=== PATIENT | female | born 1960 | race Caucasian/White ===

== ENCOUNTER 2017-10-10 13:23 | Emergency (ER) | payer OTHER, MEDICAID ==
[~2017-10-10] VITALS: Ht 124.5 cm; Wt 72.6 kg
[2017-10-10] MEDS ORDERED: BLOOD PRESSURE (13:37)
[2017-10-10] MEDS ORDERED: ANTI DEPRESSANT (13:38)
[2017-10-10] MEDS ORDERED: ANTACID168 MG PO (13:38)
[2017-10-10] MEDS ORDERED: TESSALON PERLE100 MG PO (14:26)
[2017-10-10] MEDS ORDERED: TRAMADOL 50 MG50 MG PO (14:26)
[2017-10-10 14:47] VITALS: BP 129/84
== END 2017-10-10 14:48 | disposition home or self-care (01) ==
LOC: M.ERS 13:23
DX: R07.81 Pleurodynia (principal); R05 Cough; Z88.6 Allergy status to analgesic agent

== ENCOUNTER 2017-10-13 16:03 | Emergency (ER) | payer OTHER, MEDICAID ==
[~2017-10-13] VITALS: Ht 149.9 cm; Wt 74.8 kg
[~2017-10-13 16:03] MED LIST: ANTACID168 MG PO; ANTI DEPRESSANT; BLOOD PRESSURE; TESSALON PERLE100 MG PO; TRAMADOL 50 MG50 MG PO
[2017-10-13 16:13] VITALS: BP 156/98
[2017-10-13] MEDS ORDERED: TRAMADOL 50 MG50 MG PO (16:33)
== END 2017-10-13 16:45 | disposition home or self-care (01) ==
LOC: M.ERS 16:03
DX: R07.81 Pleurodynia (principal); F17.200 Nicotine dependence, unspecified, uncomplicated; Z88.6 Allergy status to analgesic agent

== ENCOUNTER 2017-11-06 12:03 | Emergency (ER) | payer OTHER, MEDICAID ==
[~2017-11-06] VITALS: Ht 180.3 cm; Wt 77.1 kg
[2017-11-06] MEDS ORDERED: ROZEREM 8 MG TAB8 M1 PO (12:18)
[2017-11-06] MEDS ORDERED: PAXIL10 MG PO (12:18)
[2017-11-06] MEDS ORDERED: ARIPIPRAZOLE2 MG PO (12:19)
[2017-11-06] MEDS ORDERED: HYDROXYZINE HCL25 M1 PO (12:19)
[2017-11-06] MEDS ORDERED: OMEPRAZOLE20 MG PO (12:20)
[2017-11-06] MEDS ORDERED: LISINOPRIL10 MG PO (12:20)
[2017-11-06] MEDS ORDERED: ALL DAY ALLERGY10 M3 PO (12:21)
[2017-11-06] MEDS ORDERED: TESSALON PERLE100 MG PO (12:47)
[2017-11-06] MEDS ORDERED: PROAIR HFA8.5 GM INH (12:47)
[2017-11-06 13:08] VITALS: BP 167/94
[2017-11-06] MEDS ORDERED: TRAMADOL 50 MG50 MG PO (13:12)
== END 2017-11-06 13:08 | disposition home or self-care (01) ==
LOC: M.ERS 12:03
DX: R05 Cough (principal); R07.81 Pleurodynia; F17.210 Nicotine dependence, cigarettes, uncomplicated; Z88.6 Allergy status to analgesic agent

== ENCOUNTER 2017-11-22 18:34 | Emergency (ER) | payer OTHER, MEDICAID ==
[~2017-11-22] VITALS: Ht 149.9 cm; Wt 74.8 kg
[~2017-11-22 18:34] MED LIST changes: +ALL DAY ALLERGY10 M3 PO; +ARIPIPRAZOLE2 MG PO; +HYDROXYZINE HCL25 M1 PO; +LISINOPRIL10 MG PO; +OMEPRAZOLE20 MG PO; +PAXIL10 MG PO; +PROAIR HFA8.5 GM INH; +ROZEREM 8 MG TAB8 M1 PO
[2017-11-22] MEDS ORDERED: ROZEREM 8 MG TAB8 M1 PO (18:47)
[2017-11-22] MEDS ORDERED: PAROXETINE7.5 MG PO (18:49)
[2017-11-22] MEDS ORDERED: NORCO 5-325 TA1 EACH PO (20:12)
[2017-11-22 20:22] VITALS: BP 153/87
== END 2017-11-22 20:23 | disposition home or self-care (01) ==
LOC: M.ERS 18:34
DX: S22.43XA Multiple fractures of ribs, bilateral, initial encounter for closed fracture (principal); M81.0 Age-related osteoporosis without current pathological fracture; F17.210 Nicotine dependence, cigarettes, uncomplicated; Z88.6 Allergy status to analgesic agent; X58.XXXA Exposure to other specified factors, initial encounter; Y93.89 Activity, other specified; Y92.89 Other specified places as the place of occurrence of the external cause; Y99.8 Other external cause status

== ENCOUNTER 2018-01-05 17:48 | Emergency (ER) | payer OTHER, MEDICAID ==
[~2018-01-05] VITALS: Ht 149.9 cm; Wt 77.1 kg
[~2018-01-05 17:48] MED LIST changes: +NORCO 5-325 TA1 EACH PO; +PAROXETINE7.5 MG PO
[2018-01-05] MEDS ORDERED: NORCO 5-325 TA1 EACH PO (20:50)
[2018-01-05] MEDS ORDERED: NABUMETONE 750750 M1 PO (20:50)
[2018-01-05 21:02] VITALS: BP 176/85
== END 2018-01-05 21:03 | disposition home or self-care (01) ==
LOC: M.ERS 17:48
DX: M79.651 Pain in right thigh (principal); Z76.0 Encounter for issue of repeat prescription; I10 Essential (primary) hypertension; M81.0 Age-related osteoporosis without current pathological fracture; F17.210 Nicotine dependence, cigarettes, uncomplicated; Z88.6 Allergy status to analgesic agent

== ENCOUNTER 2018-01-26 14:15 | Emergency (ER) | payer OTHER, MEDICAID ==
[~2018-01-26] VITALS: Ht 149.9 cm; Wt 77.1 kg
[~2018-01-26 14:15] MED LIST changes: +NABUMETONE 750750 M1 PO
[2018-01-26] MEDS ORDERED: TRAMADOL 50 MG50 MG PO (15:38)
[2018-01-26 15:58] VITALS: BP 121/79
== END 2018-01-26 15:59 | disposition home or self-care (01) ==
LOC: M.ERS 14:15
DX: S20.212A Contusion of left front wall of thorax, initial encounter (principal); I10 Essential (primary) hypertension; M81.0 Age-related osteoporosis without current pathological fracture; F17.210 Nicotine dependence, cigarettes, uncomplicated; Z88.6 Allergy status to analgesic agent; X58.XXXA Exposure to other specified factors, initial encounter; Y93.89 Activity, other specified; Y92.89 Other specified places as the place of occurrence of the external cause; Y99.8 Other external cause status

== ENCOUNTER 2018-03-24 12:08 | Emergency (ER) | payer OTHER, MEDICAID ==
[~2018-03-24] VITALS: Ht 149.9 cm; Wt 74.8 kg
[2018-03-24] MEDS ORDERED: LIDOCAINE1 EACH TRANSDERM (12:30)
[2018-03-24] MEDS ORDERED: TESSALON PERLE100 MG PO ×2 (12:31→12:34)
[2018-03-24] MEDS ORDERED: ALLERGY10 M1 PO (12:31)
[2018-03-24] MEDS ORDERED: GYNE-LOTRIMIN-745 GM TOP (12:32)
[2018-03-24] MEDS ORDERED: NABUMETONE 750750 M1 PO (12:33)
[2018-03-24] MEDS ORDERED: FLEXERIL PO (12:33)
[2018-03-24] MEDS ORDERED: MOBIC7.5 MG PO (12:33)
[2018-03-24] MEDS ORDERED: RISEDRONATE SOD35 MG PO (12:34)
[2018-03-24] MEDS ORDERED: PEPCID20 MG PO (12:34)
[2018-03-24] MEDS ORDERED: VITAMIN D5000 UNIT PO (12:35)
[2018-03-24] MEDS ORDERED: CALCIUM 500 +1 EAC5 PO (12:35)
[2018-03-24] MEDS ORDERED: CALCIUM 600 +1 EAC1 PO (12:36)
[2018-03-24] MEDS ORDERED: COLACE100 MG PO (12:36)
[2018-03-24] MEDS ORDERED: BELSOMRA10 MG PO (12:37)
[2018-03-24] MEDS ORDERED: PAXIL10 MG PO (12:38)
[2018-03-24] MEDS ORDERED: RISPERDAL2 MG PO (12:38)
[2018-03-24] MEDS ORDERED: HYDROXYZINE HCL25 M1 PO (12:39)
[2018-03-24] MEDS ORDERED: NORCO 5-325 TA1 EACH PO (15:00)
[2018-03-24] MEDS ORDERED: NYSTATIN 100,0015 G1 TOP (15:07)
[2018-03-24 15:25] VITALS: BP 133/64
== END 2018-03-24 15:27 | disposition home or self-care (01) ==
LOC: M.ERS 12:08
DX: M79.651 Pain in right thigh (principal); B35.4 Tinea corporis; M81.0 Age-related osteoporosis without current pathological fracture; I10 Essential (primary) hypertension; F17.210 Nicotine dependence, cigarettes, uncomplicated; Z88.6 Allergy status to analgesic agent

== ENCOUNTER 2018-04-02 12:06 | Emergency (ER) | payer OTHER, MEDICAID ==
[~2018-04-02] VITALS: Ht 149.9 cm; Wt 75.8 kg
[~2018-04-02 12:06] MED LIST changes: +ALLERGY10 M1 PO; +BELSOMRA10 MG PO; +CALCIUM 500 +1 EAC5 PO; +CALCIUM 600 +1 EAC1 PO; +COLACE100 MG PO; +FLEXERIL PO; +GYNE-LOTRIMIN-745 GM TOP; +LIDOCAINE1 EACH TRANSDERM; +MOBIC7.5 MG PO; +NYSTATIN 100,0015 G1 TOP; +PEPCID20 MG PO; +RISEDRONATE SOD35 MG PO; +RISPERDAL2 MG PO; +VITAMIN D5000 UNIT PO
[2018-04-02] MEDS ORDERED: TRAMADOL 50 MG50 MG PO (13:01)
[2018-04-02 13:10] VITALS: BP 139/78
== END 2018-04-02 13:11 | disposition home or self-care (01) ==
LOC: M.ERS 12:06
DX: S93.491A Sprain of other ligament of right ankle, initial encounter (principal); W19.XXXA Unspecified fall, initial encounter; Y93.89 Activity, other specified; Y92.89 Other specified places as the place of occurrence of the external cause; Y99.8 Other external cause status; I10 Essential (primary) hypertension; Z88.6 Allergy status to analgesic agent

== ENCOUNTER 2018-04-05 11:28 | Emergency (ER) | payer OTHER, MEDICAID ==
[~2018-04-05] VITALS: Ht 149.9 cm; Wt 75.8 kg
[2018-04-05] MEDS ORDERED: VOLTAREN100 GM TOP (12:39)
[2018-04-05 12:48] VITALS: BP 130/62
== END 2018-04-05 12:51 | disposition home or self-care (01) ==
LOC: M.ERS 11:28
DX: M94.0 Chondrocostal junction syndrome [Tietze] (principal); I10 Essential (primary) hypertension; M81.0 Age-related osteoporosis without current pathological fracture; F17.210 Nicotine dependence, cigarettes, uncomplicated; Z88.6 Allergy status to analgesic agent

== ENCOUNTER 2018-06-03 12:59 | Observation (INO) | payer OTHER, MEDICAID ==
[~2018-06-03] VITALS: Ht 149.9 cm; Wt 75.7 kg
[~2018-06-03 12:59] MED LIST changes: +VOLTAREN100 GM TOP
[2018-06-03 13:11] VITALS: BP 153/94
[2018-06-03] MEDS ORDERED: LISINOPRIL10 MG PO (13:15)
[2018-06-03] MEDS ORDERED: NEURONTIN 300300 M1 PO (13:15)
[2018-06-03] MEDS ORDERED: ROZEREM 8 MG TAB8 M1 PO (13:16)
[2018-06-03] MEDS ORDERED: RISEDRONATE SOD35 M1 PO (13:18)
[2018-06-03] MEDS ORDERED: NASONEX17 GM NASAL (13:19)
[2018-06-03 13:58] LABS: URINE BILIRUBIN NEGATIVE (Negative); URINE BLOOD NEGATIVE (Negative); URINE CLARITY CLEAR; URINE COLOR YELLOW; URINE GLUCOSE-RANDOM 1+ (Negative); URINE KETONES NEGATIVE (Negative); URINE LEUKOCYTES-REFLEX NEGATIVE (Negative); URINE NITRITE-REFLEX NEGATIVE (Negative); URINE PROTEIN NEGATIVE (Negative); URINE SPECIFIC GRAVITY <= 1.005 (1.005-1.030); URINE UROBILINOGEN 0.2 E.U./dl (0.2-1.0)
[2018-06-03 14:00] LABS: ABSOLUTE BASOPHILS 0.1 thou/uL (0.0-0.2); ABSOLUTE EOSINOPHILS 0.2 thou/uL (0.0-0.7); ABSOLUTE LYMPHOCYTES 1.5 thou/uL (0.8-5.3); ABSOLUTE MONOCYTES 0.7 thou/uL (0.0-1.2); ABSOLUTE NEUTROPHILS 8.4 thou/uL (1.6-8.1); BASOPHILS 1.1 %; EOSINOPHILS 1.9 %; HEMATOCRIT 40.3 % (37.0-47.0); HEMOGLOBIN 13.5 gm/dL (12.0-15.0); LYMPHOCYTES 13.4 %; MCH 27.7 pg (26.0-34.0); MCHC 33.5 g/dL (28.0-37.0); MCV 82.5 fL (80.0-100.0); MONOCYTES 6.2 %; MPV 7.3 fl. (7.2-11.1); NUCLEATED RBCS 0 /100WBC; PLATELET COUNT* 202 thou/uL (150-400); POLYS 77.4 %; RBC 4.89 mil/uL (4.20-5.00); RDW-CV 13.4 % (10.5-14.5); WBC 10.9 thou/uL (4.0-11.0)
[2018-06-03 14:23] LABS: CALCIUM 8.8 mg/dL (8.5-10.1); CREATININE 0.7 mg/dL (0.6-1.3); POTASSIUM 3.8 mmol/L (3.5-5.1)
[2018-06-03 14:28] LABS: ALBUMIN 3.4 g/dL (3.4-5.0); TOTAL BILIRUBIN 0.4 mg/dL (<0.1-1.0); TOTAL PROTEIN 7.7 g/dL (6.4-8.2)
[2018-06-03 19:58] VITALS: BP 124/62
[2018-06-03 20:00] VITALS: BP 145/77
[2018-06-03] MEDS ORDERED: ABILIFY 2 MG2 M1 PO (20:16)
[2018-06-03] MEDS ORDERED: COLACE100 MG PO (20:18)
[2018-06-03] MEDS ORDERED: MAGNESIUM CITR100 MG PO (20:20)
[2018-06-03] MEDS ORDERED: TYLENOL EXTRA500 MG PO (20:21)
--- NOTE | 2018-06-03 20:53 | NUR ---
ADMITTED FROM ER AT 1945, NO ACUTE DISTRESS. STATES SHE IS CONSTIPATED BUT HAD SM BM TODAY. ACTIVE BOWEL SOUNDS, NO GRIMACING WHEN PALPATING ABD. TELEMETRY APPLIED SHOWING SR. SEE ADMISSION ASSESSMENT AND HX. WILL CONT TO MONITOR AND ASSIST NEEDED.
[2018-06-04] VITALS: BP 127/64
[2018-06-04 02:11] LABS: GLYCOHEMOGLOBIN (HGB A1C) 10.1 % (4.8-5.6)
[2018-06-04 04:00] VITALS: BP 132/76
[2018-06-04 05:20] LABS: HEMATOCRIT 38.2 % (37.0-47.0); HEMOGLOBIN 12.5 gm/dL (12.0-15.0); MCH 27.2 pg (26.0-34.0); MCHC 32.8 g/dL (28.0-37.0); MCV 82.8 fL (80.0-100.0); MPV 7.4 fl. (7.2-11.1); RBC 4.61 mil/uL (4.20-5.00); RDW-CV 13.7 % (10.5-14.5); WBC 11.2 thou/uL (4.0-11.0)
[2018-06-04 05:27] LABS: CALCIUM 8.6 mg/dL (8.5-10.1); CREATININE 0.6 mg/dL (0.6-1.3); MAGNESIUM 1.8 mg/dL (1.8-2.4); POTASSIUM 4.4 mmol/L (3.5-5.1)
--- NOTE | 2018-06-04 06:09 | NUR ---
SLEPT WELL TONIGHT. GAIT STEADY TO AND FROM BR. FLEETS ENEMA GIVEN EARLIER WITH COLORED WATER BUT NO PARTICALS NOTED. TELEMETRY CONT TO SHOW SR. HS GOALS OF REST AND SAFETY ACHIEVED. HOURLY ROUNDING OBSERVED.
--- NOTE | 2018-06-04 08:00 | NUR ---
ASSUMED PT CARE AT 0700, PT LYING IN BED, CALL LIGHT IN REACH, CONTACT LENS POLISHER TRACING SINUS RHYTHM, VSS, LS CTA, BS ACTIVE X4, PT HAD SOLID BM THIS EARLY AM. UP WITH ASSIST, A&O X4, WILL CONT POC.
[2018-06-04] MEDS ORDERED: METFORMIN HCL500 MG PO (11:01)
[2018-06-04] MEDS ORDERED: SENNA PLUS TAB1 EACH PO (11:01)
[2018-06-04] MEDS ORDERED: MIRALAX17 GM PO (11:01)
[2018-06-04 11:10] VITALS: BP 152/85
--- NOTE | 2018-06-04 11:35 | NUR ---
MET WITH PT TO DISCUSS HOME SITUATION/DC PLANNING. PT LIVES ALONE, HAS SUPPORTIVE DTR AND BF. USES CANE. PT DENIES ANY DC NEEDS. STATES SHE IS INDEPENDENT. PT STATED SHE WAS JUST DX WITH DMII, ASKING ABOUT INFO AND DIET. DM EDUCATION PACKET OBTAINED AND GIVEN TO PT, DISCUSSED WITH NURSE TO REVIEW. ALSO LEFT VMAIL FOR DIETITIAN. PT TO DC TODAY
[2018-06-04 14:47] VITALS: BP 152/85
--- NOTE | 2018-06-04 16:18 | NUR ---
PT DISCHARGED HOME VIA WHEELCHAIR WITH SIGNIFICANT OTHER AND NURSING STAFF. IV AND FIVE ROLL REFINER BATCH MIXER REMOVED, EDUCATED PT ON ALL DISCHARGE INSTRUCTIONS INCLUDING MEDICATIONS AND FOLLOW UP APPTS, STATES UNDERSTANDING.
== END 2018-06-04 16:05 | disposition home or self-care (01) ==
LOC: M.ERS 12:59 → M.2W 15:28 → M.TBA-ER 15:28 → M.2W 15:28
PROVIDERS: Nurse Practitioner Family; ADMIT Internal Medicine
DX: K59.00 Constipation, unspecified (principal); E86.9 Volume depletion, unspecified; E87.1 Hypo-osmolality and hyponatremia; E11.65 Type 2 diabetes mellitus with hyperglycemia; I10 Essential (primary) hypertension; F43.10 Post-traumatic stress disorder, unspecified; K64.9 Unspecified hemorrhoids; F17.210 Nicotine dependence, cigarettes, uncomplicated; Z79.899 Other long term (current) drug therapy

== ENCOUNTER 2018-06-21 07:19 | Emergency (ER) | payer OTHER, MEDICAID ==
[~2018-06-21] VITALS: Ht 162.6 cm; Wt 78.5 kg
[~2018-06-21 07:19] MED LIST changes: +ABILIFY 2 MG2 M1 PO; +MAGNESIUM CITR100 MG PO; +METFORMIN HCL500 MG PO; +MIRALAX17 GM PO; +NASONEX17 GM NASAL; +NEURONTIN 300300 M1 PO; +RISEDRONATE SOD35 M1 PO; +SENNA PLUS TAB1 EACH PO; +TYLENOL EXTRA500 MG PO
[2018-06-21] MEDS ORDERED: HYDROCODON-ACE1 EAC8 PO (12:26)
[2018-06-21 12:59] VITALS: BP 149/86
== END 2018-06-21 12:59 | disposition home or self-care (01) ==
LOC: M.ERS 07:19
DX: S82.841A Displaced bimalleolar fracture of right lower leg, initial encounter for closed fracture (principal); I10 Essential (primary) hypertension; F17.210 Nicotine dependence, cigarettes, uncomplicated; Z88.6 Allergy status to analgesic agent; W00.0XXA Fall on same level due to ice and snow, initial encounter; Y93.89 Activity, other specified; Y92.89 Other specified places as the place of occurrence of the external cause; Y99.8 Other external cause status

== ENCOUNTER 2019-04-03 22:09 | Inpatient (IN) | payer OTHER, MEDICAID ==
[~2019-04-03] VITALS: Ht 149.9 cm; Wt 65.8 kg
[~2019-04-03 22:09] MED LIST changes: +CYCLOBENZAPRINE5 MG PO; +ENOXAPARIN40 MG/0.1 SUBQ; +HYDROCODON-ACE1 EAC7 PO; +HYDROCODON-ACE1 EAC8 PO
[2019-04-03 22:17] VITALS: BP 149/90
[2019-04-03 23:00] LABS: ABSOLUTE BASOPHILS 0.1 thou/uL (0.0-0.2); ABSOLUTE EOSINOPHILS 0.2 thou/uL (0.0-0.7); ABSOLUTE LYMPHOCYTES 2.2 thou/uL (0.8-5.3); ABSOLUTE MONOCYTES 0.9 thou/uL (0.0-1.2); ABSOLUTE NEUTROPHILS 6.5 thou/uL (1.6-8.1); BASOPHILS 0.6 %; EOSINOPHILS 2.1 %; HEMATOCRIT 40.5 % (37.0-47.0); HEMOGLOBIN 13.7 gm/dL (12.0-15.0); LYMPHOCYTES 21.9 %; MCH 28.2 pg (26.0-34.0); MCHC 33.9 g/dL (28.0-37.0); MCV 83.4 fL (80.0-100.0); MONOCYTES 9.1 %; MPV 6.6 fl. (7.2-11.1); NUCLEATED RBCS 0 /100WBC; PLATELET COUNT* 233 thou/uL (150-400); POLYS 66.3 %; RBC 4.86 mil/uL (4.20-5.00); RDW-CV 12.9 % (10.5-14.5); WBC 9.9 thou/uL (4.0-11.0)
[2019-04-03 23:07] LABS: CALCIUM 8.8 mg/dL (8.5-10.1); CREATININE 0.8 mg/dL (0.6-1.3); POTASSIUM 4.1 mmol/L (3.5-5.1)
[2019-04-03 23:11] LABS: ALBUMIN 4.1 g/dL (3.4-5.0); TOTAL BILIRUBIN 0.3 mg/dL (<0.1-1.0); TOTAL PROTEIN 7.7 g/dL (6.4-8.2)
[2019-04-04 00:29] LABS: URINE BILIRUBIN NEGATIVE (Negative); URINE BLOOD NEGATIVE (Negative); URINE CLARITY CLEAR; URINE COLOR YELLOW; URINE GLUCOSE-RANDOM NEGATIVE (Negative); URINE KETONES NEGATIVE (Negative); URINE LEUKOCYTES-REFLEX NEGATIVE (Negative); URINE NITRITE-REFLEX NEGATIVE (Negative); URINE PROTEIN NEGATIVE (Negative); URINE UROBILINOGEN 0.2 E.U./dl (0.2-1.0)
[2019-04-04 00:38] LABS: AMP/METHAMP Negative (Negative); BARBITURATES Negative (Negative); BENZODIAZEPINES Negative (Negative); COCAINE Negative (Negative); METHADONE Negative (Negative); OPIATES Negative (Negative); PCP Negative (Negative); THC Negative (Negative)
[2019-04-04 01:35] VITALS: BP 149/90
[2019-04-04 01:45] VITALS: BP 112/64
[2019-04-04 08:45] VITALS: BP 121/70
[2019-04-04 12:40] LABS: ABSOLUTE BASOPHILS 0.1 thou/uL (0.0-0.2); ABSOLUTE EOSINOPHILS 0.2 thou/uL (0.0-0.7); ABSOLUTE LYMPHOCYTES 1.6 thou/uL (0.8-5.3); ABSOLUTE MONOCYTES 0.6 thou/uL (0.0-1.2); ABSOLUTE NEUTROPHILS 4.7 thou/uL (1.6-8.1); BASOPHILS 1.2 %; EOSINOPHILS 2.1 %; HEMATOCRIT 39.9 % (37.0-47.0); HEMOGLOBIN 13.5 gm/dL (12.0-15.0); LYMPHOCYTES 22.7 %; MCH 28.1 pg (26.0-34.0); MCHC 33.8 g/dL (28.0-37.0); MCV 83.1 fL (80.0-100.0); MONOCYTES 8.1 %; MPV 6.7 fl. (7.2-11.1); NUCLEATED RBCS 0 /100WBC; PLATELET COUNT* 231 thou/uL (150-400); POLYS 65.9 %; RDW-CV 13.4 % (10.5-14.5); WBC 7.2 thou/uL (4.0-11.0)
[2019-04-04 12:55] LABS: ALBUMIN 3.8 g/dL (3.4-5.0); CALCIUM 8.1 mg/dL (8.5-10.1); CREATININE 0.7 mg/dL (0.6-1.3); POTASSIUM 4.4 mmol/L (3.5-5.1); TOTAL BILIRUBIN 0.3 mg/dL (<0.1-1.0); TOTAL PROTEIN 7.2 g/dL (6.4-8.2)
[2019-04-04 16:00] VITALS: BP 127/68
[2019-04-04 21:00] VITALS: BP 132/74
[2019-04-05 05:00] LABS: ABSOLUTE EOSINOPHILS 0.2 thou/uL (0.0-0.7); ABSOLUTE LYMPHOCYTES 1.6 thou/uL (0.8-5.3); ABSOLUTE MONOCYTES 0.7 thou/uL (0.0-1.2); ABSOLUTE NEUTROPHILS 5.1 thou/uL (1.6-8.1); BASOPHILS 0.6 %; EOSINOPHILS 2.6 %; HEMATOCRIT 39.2 % (37.0-47.0); LYMPHOCYTES 20.6 %; MCH 27.8 pg (26.0-34.0); MCHC 33.2 g/dL (28.0-37.0); MCV 83.6 fL (80.0-100.0); MONOCYTES 9.4 %; NUCLEATED RBCS 0 /100WBC; PLATELET COUNT* 224 thou/uL (150-400); POLYS 66.8 %; RBC 4.68 mil/uL (4.20-5.00); RDW-CV 13.5 % (10.5-14.5); WBC 7.6 thou/uL (4.0-11.0)
[2019-04-05 05:14] LABS: ALBUMIN 3.7 g/dL (3.4-5.0); CALCIUM 7.8 mg/dL (8.5-10.1); CREATININE 0.8 mg/dL (0.6-1.3); POTASSIUM 4.1 mmol/L (3.5-5.1); TOTAL BILIRUBIN 0.5 mg/dL (<0.1-1.0)
[2019-04-05 07:52] VITALS: BP 138/65
[2019-04-05 11:52] VITALS: BP 138/65
--- NOTE | 2019-04-05 14:35 | EKG ---
[place] [address] ELECTROCARDIOGRAM REPORT Name: NICOLE EDMOND Room: [address] ADM IN M.R.#: [id number] Admission: 04/04/19 Attend Phys: John Zambrano MD Discharge: Date of : 56 Report #: [id number] THIS REPORT FOR: //name// [facility] Test Date: 2019-04-05 Test Time: 12:52:16 Pat Name: NICOLE EDMOND Department: Room: [address] Gender: F Actuarial Consultant: RT : 1960 Requested By: Shankar Mena Order Number: [id number] John MD: Nas Goodman Measurements Intervals [place] Rate: 79 P: 65 MA: 141 QRS: 11 QRSD: 94 T: 76 QT: 426 QTc: 489 Interpretive Statements Sinus rhythm Probable LVH with secondary repol abnrm Borderline prolonged QT interval Compared to ECG 06/30/2018 10:32:02 No significant changes Electronically Signed On 04-05-2019 14:35:23 COMMITTEE MEMBER by Nas Goodman [email or web address] <ELECTRONICALLY SIGNED> By: Nas Goodman MD, [facility] 04/05/19 1435 1252 1252 Nas Goodman MD, [facility] /EPI
[2019-04-05 20:15] VITALS: BP 150/78
[2019-04-06 00:49] VITALS: BP 129/76
[2019-04-06 04:04] LABS: ABSOLUTE BASOPHILS 0.1 thou/uL (0.0-0.2); ABSOLUTE EOSINOPHILS 0.1 thou/uL (0.0-0.7); ABSOLUTE LYMPHOCYTES 1.5 thou/uL (0.8-5.3); ABSOLUTE MONOCYTES 0.9 thou/uL (0.0-1.2); ABSOLUTE NEUTROPHILS 9.9 thou/uL (1.6-8.1); BASOPHILS 0.7 %; EOSINOPHILS 0.6 %; HEMATOCRIT 39.5 % (37.0-47.0); HEMOGLOBIN 13.5 gm/dL (12.0-15.0); LYMPHOCYTES 12.2 %; MCH 28.4 pg (26.0-34.0); MCHC 34.2 g/dL (28.0-37.0); MCV 82.8 fL (80.0-100.0); MONOCYTES 6.9 %; MPV 6.5 fl. (7.2-11.1); NUCLEATED RBCS 0 /100WBC; PLATELET COUNT* 208 thou/uL (150-400); POLYS 79.6 %; RBC 4.78 mil/uL (4.20-5.00); RDW-CV 12.9 % (10.5-14.5); WBC 12.4 thou/uL (4.0-11.0)
[2019-04-06 04:28] VITALS: BP 135/63
[2019-04-06 04:36] LABS: ALBUMIN 3.6 g/dL (3.4-5.0); CALCIUM 7.7 mg/dL (8.5-10.1); CREATININE 0.7 mg/dL (0.6-1.3); POTASSIUM 4.2 mmol/L (3.5-5.1); TOTAL BILIRUBIN 0.5 mg/dL (<0.1-1.0); TOTAL PROTEIN 8.2 g/dL (6.4-8.2)
[2019-04-06 08:10] VITALS: BP 136/81
[2019-04-06 12:29] VITALS: BP 136/81
[2019-04-06] MEDS ORDERED: HYDROCODON-ACE1 EAC7 PO (13:12)
[2019-04-06] MEDS ORDERED: SENNA PLUS TAB1 EACH PO (16:10)
--- NOTE | 2019-04-08 10:07 | PATH ---
[address] [address] PATHOLOGY RPT PROCEDURE Name: NICOLE EDMOND Room: [address] IN .R.#: [id number] Admission: 04/04/19 Date of : 56 Discharge: 04/06/19 Report #: [id number] Path Case #: [id number] LCA Accession Number: [id number] . 01 Material submitted: . gallbladder - GALLBLADDER . 01 Clinical history: . Cholecystitis . 02 Diagnosis: Gallbladder: - Chronic follicular and acute cholecystitis and cholelithiasis with benign sentinel lymph node showing follicular hyperplasia. . (AMRIT:mml; 04/07/2019) QL 04/07/2019 1243 Local . 02 Electronically signed: . Jose M Whitmore MD, Pathologist NPI- [id number] . 01 Gross description: . Received in formalin labeled "Nicole Edmond, gallbladder," is an intact, turgid and edematous-appearing gallbladder measuring 7.5 x 3.6 x 2.4 cm in greatest dimensions. The serosal surface is smooth and light green-yellow to focally hemorrhagic in appearance, displaying scant attached adipose tissue. A sheikh-brown possible lymph node is noted near the infundibulum, measuring 1.0 x 0.8 x 0.3 cm. Opening the specimen reveals a light green mucosa diffusely stippled with faint yellow highlights and measuring 0.1 cm in thickness, with an average gallbladder wall thickness of 0.2 cm. No polyps or nodules are identified grossly. Intact and fragmented calculi are present within the specimen that are granular and dark sheikh-brown in appearance, ranging from 0.3 to 1.2 cm in maximum dimension. Residential Service Technician sections of the infundibulum, body and fundus are submitted in cassette A1. The possible lymph node is serially sectioned and submitted entirely in cassette A2. (DAC; 04/06/2019) XDC/XDC 04/06/2019 0743 Local . 02 Pathologist provided ICD-10: K80.12, R59.9 . 02 CPT . 356014 Specimen Comment: A courtesy copy of this report has been sent to [phone], [phone] Specimen Comment: [address], [place] [address] PATHOLOGY RPT PROCEDURE Name: NICOLE EDMOND Room: [address] IN M.R.#: [id number] Admission: 04/04/19 Date of : 56 Discharge: 04/06/19 Report #: [id number] Path Case #: [id number] Specimen Comment: Report sent to , and Specimen Comment: A duplicate report has been generated due to demographic updates. Performed at: 01 [facility] Juan Pablo Lee [address], [place], [place] [address] MD Ernesto Cano MD Phone: [phone] Performed at: 02 [facility] [address] [place], [place] [id number] MD Jose M Whitmore MD Phone: [phone]
--- NOTE | 2019-04-12 14:39 | OP ---
[address] [address] OPERATIVE REPORT Name: NICOLE EDMOND Room: [address] IN M.R.#: [id number] Admission: 04/04/19 Attend Phys: John Zambrano MD Discharge: 04/06/19 Date of : 56 Report #: [id number] THIS REPORT FOR: //name// CC: John Javed Christopher DICTATED BY: Harvey Meier DO DATE OF SERVICE: 04/05/2019 PREOPERATIVE DIAGNOSIS: Symptomatic cholelithiasis. POSTOPERATIVE DIAGNOSES: Acute cholecystitis with cholelithiasis. PRIMARY SURGEON: Blaine Wilson MD ASSISTANTS: Harvey Meier DO, PGY3 and Preet Harden MS3. OPERATION PERFORMED: Laparoscopic cholecystectomy. ANESTHESIA: General and local. ESTIMATED BLOOD LOSS: 10. SPECIMEN: Gallbladder. COMPLICATIONS: None. INDICATIONS FOR PROCEDURE: The patient is a pleasant 58-year-old female who presented to the ED with a chief complaint of right upper quadrant abdominal pain starting the night prior after a meal. The patient reports known gallstones and a history of being offered a cholecystectomy, but declined at that time and wanted to monitor it. She reports associated radiation of her pain to her right shoulder and back as well as nausea and vomiting. Pain had persisted for 24 hours and was not improving, so she decided to seek further treatment. The patient was noted to have distended gallbladder with cholelithiasis on a CT abdomen and pelvis, recommended laparoscopic cholecystectomy. Full discussion of procedure, alternatives, risks and possible complications discussed include but not limited to bleeding, infection, postoperative pain, scarring, hernia, conversion to open procedure, injury to other underlying abdominal organs mainly bowel, bile ducts, liver and stomach, if bile duct injury were to occur, need for further surgery, possible transfer to tertiary care facility, bile leak, biloma and anesthesia risks. The patient voiced understanding of the risks and agreed to proceed with surgery. OPERATIVE TECHNIQUE: The patient was [place] [address] OPERATIVE REPORT Name: NICOLE EDMOND Room: [address] IN ..#: [id number] Admission: 04/04/19 Attend Phys: John Zambrano MD Discharge: 04/06/19 Date of : 56 Report #: [id number] preoperative holding. Fully informed written consent was obtained. Preoperative antibiotics, 2 grams Ancef were given. The patient was subsequently transferred to the operating room suite and placed on the operating table in supine position. At this time, Anesthesia induced general anesthesia via endotracheal intubation and this was successful. SCDs were placed to bilateral lower extremity calves. Arm were placed out on arm boards. Grounding pad was placed to right lateral thigh. All extremities and joints were padded and protected. A footboard was placed to the patient's feet. The patient was prepped and draped using standard sterile fashion. Time-out was performed prior to onset of procedure. We began by optiviewing in with a 5 mm trocar to the right upper quadrant. Insufflation was achieved first using low flow then high flow. A 5 mm 30-degree laparoscopic camera was placed in the abdomen, noting no injury to underlying structures upon entry into the abdomen. Next, additional 5 mm trocar was placed superior to the umbilicus and an additional 8 mm trocar was placed in the right upper quadrant as if was a 5 mm trocar in the epigastric region. The patient was placed in reverse Trendelenburg with left side down. Gallbladder was grasped and elevated. Omental and peritoneal attachments were taken down. The gallbladder was noted to be distended, edematous, hyperemic with findings consistent with acute cholecystitis. The gallbladder was grasped, the Christos's pouch with the blunt grasper. Dissection was carried out on the lateral aspect of the gallbladder, taking down the peritoneum. Once this was achieved, cystic duct was noted and dissected out circumferentially. The cystic duct was very short and the cystic artery was noted to be just posterior to this. Critical view of safety was obtained. A 5 mm clip sales engineer was used to clip the cystic duct three times proximally and once distally and up near the gallbladder as well as the cystic artery was clipped twice proximally and once distally. Artery and duct were then transected using laparoscopic scissors. Gallbladder was placed into a 5 mm EndoCatch bag through the 8 mm trocar site. The right upper quadrant was copiously suctioned and irrigated using a laparoscopic suction. Hemostasis was easily achieved using electrocautery of the gallbladder fossa and liver bed. The patient was placed back to supine. The gallbladder was then removed through the 8 mm incision site in the right upper quadrant. Abdomen was then desufflated under direct visualization. Additional trocars were removed. The patient placed back supine. An interrupted 0 Vicryl suture was used to close the fascia of the 8 mm port site. Skin was closed using interrupted subcuticular 4-0 Monocryl at each location. The patient tolerated the procedure well. Abdomen was cleansed using wet and dry lap. Sterile dressing applied, Dermabond. The patient was extubated in the OR and transferred to the PACU in stable condition after a brief recovery from anesthesia and plan to return to the floor for ongoing care. <ELECTRONICALLY SIGNED> By: Blaine Wilson MD 04/12/19 0452 1502 1919MD marilou Mantilla
== END 2019-04-06 18:54 | disposition home or self-care (01) | DRG 418 ==
LOC: M.ERS 22:09 → M.3W 04-04 01:00 → M.TBA-ER 04-04 01:00 → M.3W 04-04 01:34
PROVIDERS: Internal Medicine; Nurse Practitioner Family; Personal Emergency Response Attendant; Surgery; ADMIT Internal Medicine
PROC: 0FT44ZZ Resection of Gallbladder, Percutaneous Endoscopic Approach (ICD-10-PCS; principal; 2019-04-05)
DX: K80.00 Calculus of gallbladder with acute cholecystitis without obstruction (principal); E87.1 Hypo-osmolality and hyponatremia; M81.0 Age-related osteoporosis without current pathological fracture; I10 Essential (primary) hypertension; F43.10 Post-traumatic stress disorder, unspecified; K75.81 Nonalcoholic steatohepatitis (NASH); D25.9 Leiomyoma of uterus, unspecified; E11.9 Type 2 diabetes mellitus without complications; F17.210 Nicotine dependence, cigarettes, uncomplicated; F10.21 Alcohol dependence, in remission; H57.89 Other specified disorders of eye and adnexa; F41.9 Anxiety disorder, unspecified; F32.9 Major depressive disorder, single episode, unspecified; K59.00 Constipation, unspecified; M19.90 Unspecified osteoarthritis, unspecified site; Z82.49 Family history of ischemic heart disease and other diseases of the circulatory system; Z79.84 Long term (current) use of oral hypoglycemic drugs; Z79.891 Long term (current) use of opiate analgesic; Z79.899 Other long term (current) drug therapy; Z88.8 Allergy status to other drugs, medicaments and biological substances; Z83.3 Family history of diabetes mellitus; Z80.9 Family history of malignant neoplasm, unspecified

== ENCOUNTER 2020-02-13 23:24 | Emergency (ER) | payer OTHER, MEDICAID ==
[~2020-02-13] VITALS: Ht 149.9 cm; Wt 72.1 kg
[2020-02-13] MEDS ORDERED: LIPITOR 20 MG T20 M1 PO (23:46)
[2020-02-13] MEDS ORDERED: PROAIR HFA8.5 GM INH (23:46)
[2020-02-13] MEDS ORDERED: BUPROPION XL300 MG PO (23:46)
[2020-02-13] MEDS ORDERED: MIRALAX119 GM PO (23:47)
[2020-02-13] MEDS ORDERED: CENTRUM SILVER1 EAC6 PO (23:47)
[2020-02-13] MEDS ORDERED: MELOXICAM15 MG PO (23:48)
[2020-02-13] MEDS ORDERED: VOLTAREN GEL 1100 G1 TOP (23:48)
[2020-02-13] MEDS ORDERED: FLONASE 0.05%50 MCG NASAL (23:48)
[2020-02-13] MEDS ORDERED: TOPROL XL25 MG PO (23:49)
[2020-02-13] MEDS ORDERED: TRAMADOL 50 MG50 MG PO (23:49)
[2020-02-13] MEDS ORDERED: ROZEREM 8 MG TAB8 M1 PO (23:49)
[2020-02-13 23:57] LABS: ABSOLUTE BASOPHILS 0.1 thou/uL (0.0-0.2); ABSOLUTE EOSINOPHILS 0.2 thou/uL (0.0-0.7); ABSOLUTE NEUTROPHILS 7.5 thou/uL (1.6-8.1); WBC 10.9 thou/uL (4.0-11.0)
[2020-02-13 23:59] LABS: ABSOLUTE LYMPHOCYTES 2.2 thou/uL (0.8-5.3); ABSOLUTE MONOCYTES 0.9 thou/uL (0.0-1.2); BASOPHILS 0.6 %; HEMOGLOBIN 13.1 gm/dL (12.0-15.0); LYMPHOCYTES 20.4 %; MCHC 32.8 g/dL (28.0-37.0); MCV 79.3 fL (80.0-100.0); MONOCYTES 8.5 %; MPV 6.8 fl. (7.2-11.1); NUCLEATED RBCS 0 /100WBC; PLATELET COUNT* 298 thou/uL (150-400); POLYS 68.5 %; RBC 5.04 mil/uL (4.20-5.00); RDW-CV 17.3 % (10.5-14.5)
[2020-02-14 00:08] LABS: CREATININE 0.9 mg/dL (0.6-1.3); POTASSIUM 3.9 mmol/L (3.5-5.1)
[2020-02-14 00:12] LABS: ALBUMIN 3.9 g/dL (3.4-5.0); TOTAL BILIRUBIN 0.6 mg/dL (<0.1-1.0); TOTAL PROTEIN 8.9 g/dL (6.4-8.2)
[2020-02-14 00:56] LABS: URINE BILIRUBIN NEGATIVE (Negative); URINE BLOOD NEGATIVE (Negative); URINE CLARITY CLEAR; URINE COLOR YELLOW; URINE GLUCOSE-RANDOM NEGATIVE (Negative); URINE KETONES NEGATIVE (Negative); URINE LEUKOCYTES-REFLEX NEGATIVE (Negative); URINE NITRITE-REFLEX NEGATIVE (Negative); URINE PROTEIN NEGATIVE (Negative); URINE SPECIFIC GRAVITY <= 1.005 (1.005-1.030); URINE UROBILINOGEN 0.2 E.U./dl (0.2-1.0)
[2020-02-14] MEDS ORDERED: NORCO 5-325 TA1 EAC2 PO (02:18)
[2020-02-14] MEDS ORDERED: ZOFRAN ODT4 MG SUBLING (02:18)
[2020-02-14 02:46] VITALS: BP 125/67
--- NOTE | 2020-02-14 17:54 | EKG ---
[place] [address] ELECTROCARDIOGRAM REPORT Name: NICOLE EDMOND Room: [facility]#: [id number] Admission: 02/13/20 Attend Phys: Discharge: 02/14/20 Date of : 56 Date of Service: 02/13/20 2338 Report #: [id number] THIS REPORT FOR: //name// [facility] ED Test Date: 2020-02-13 Test Time: 23:38:53 Pat Name: NICOLE EDMOND Department: Room: Gender: F Dumper Operator: : 1960 Requested By: Melchor Puente Order Number: [id number] MD: Obey Caputo Measurements Intervals [place] Rate: 92 P: 75 SD: 147 QRS: 9 QRSD: 101 T: 132 QT: 403 QTc: 499 Interpretive Statements Sinus rhythm LVH with secondary repolarization abnormality Borderline prolonged QT interval Compared to ECG 04/05/2019 12:52:16 No significant changes Electronically Signed On 02-14-2020 17:54:53 CDT by Obey Caputo [email or web address] <ELECTRONICALLY SIGNED> By: Obey Caputo MD, FACC 02/14/20 1754 2338 2338 Obey Caputo MD, FACC /EPI
[2020-02-15] MEDS ORDERED: DOXYCYCLINE 10100 M2 PO (15:26)
== END 2020-02-14 02:46 | disposition home or self-care (01) ==
LOC: M.ERS 23:24
PROVIDERS: Family Medicine
DX: R10.84 Generalized abdominal pain (principal); R10.10 Upper abdominal pain, unspecified; R10.30 Lower abdominal pain, unspecified; I10 Essential (primary) hypertension; E11.9 Type 2 diabetes mellitus without complications; F17.210 Nicotine dependence, cigarettes, uncomplicated; Z90.49 Acquired absence of other specified parts of digestive tract; Z88.6 Allergy status to analgesic agent

== ENCOUNTER 2020-02-15 11:09 | Emergency (ER) | payer OTHER, MEDICAID ==
[~2020-02-15] VITALS: Ht 149.9 cm; Wt 72.1 kg
[~2020-02-15 11:09] MED LIST changes: +BUPROPION XL300 MG PO; +CENTRUM SILVER1 EAC6 PO; +FLONASE 0.05%50 MCG NASAL; +LIPITOR 20 MG T20 M1 PO; +MELOXICAM15 MG PO; +MIRALAX119 GM PO; +NORCO 5-325 TA1 EAC2 PO; +TOPROL XL25 MG PO; +VOLTAREN GEL 1100 G1 TOP; +ZOFRAN ODT4 MG SUBLING
[2020-02-15 12:06] LABS: ABSOLUTE BASOPHILS 0.1 thou/uL (0.0-0.2); ABSOLUTE EOSINOPHILS 0.1 thou/uL (0.0-0.7); ABSOLUTE LYMPHOCYTES 1.7 thou/uL (0.8-5.3); ABSOLUTE MONOCYTES 0.7 thou/uL (0.0-1.2); ABSOLUTE NEUTROPHILS 9.9 thou/uL (1.6-8.1); BASOPHILS 0.9 %; EOSINOPHILS 0.7 %; HEMATOCRIT 36.5 % (37.0-47.0); HEMOGLOBIN 11.7 gm/dL (12.0-15.0); LYMPHOCYTES 13.7 %; MCH 25.5 pg (26.0-34.0); MCHC 32.1 g/dL (28.0-37.0); MCV 79.5 fL (80.0-100.0); MONOCYTES 5.6 %; MPV 6.5 fl. (7.2-11.1); NUCLEATED RBCS 0 /100WBC; PLATELET COUNT* 257 thou/uL (150-400); POLYS 79.1 %; RBC 4.59 mil/uL (4.20-5.00); RDW-CV 16.9 % (10.5-14.5); WBC 12.5 thou/uL (4.0-11.0)
[2020-02-15 12:12] LABS: URINE BILIRUBIN NEGATIVE (Negative); URINE BLOOD NEGATIVE (Negative); URINE CLARITY CLEAR; URINE COLOR YELLOW; URINE GLUCOSE-RANDOM NEGATIVE (Negative); URINE KETONES NEGATIVE (Negative); URINE LEUKOCYTES-REFLEX NEGATIVE (Negative); URINE NITRITE-REFLEX NEGATIVE (Negative); URINE PROTEIN NEGATIVE (Negative); URINE UROBILINOGEN 0.2 E.U./dl (0.2-1.0)
[2020-02-15 12:14] LABS: CALCIUM 8.4 mg/dL (8.5-10.1); CREATININE 0.9 mg/dL (0.6-1.3); POTASSIUM 4.1 mmol/L (3.5-5.1)
[2020-02-15 12:18] LABS: ALBUMIN 3.8 g/dL (3.4-5.0); TOTAL BILIRUBIN 0.6 mg/dL (<0.1-1.0); TOTAL PROTEIN 7.9 g/dL (6.4-8.2)
[2020-02-15] MEDS ORDERED: DOXYCYCLINE 10100 M2 PO (15:26)
[2020-02-15 15:40] VITALS: BP 124/57
== END 2020-02-15 15:40 | disposition home or self-care (01) ==
LOC: M.ERS 11:09
PROVIDERS: Emergency Medicine
DX: D25.0 Submucous leiomyoma of uterus (principal); K59.00 Constipation, unspecified; J40 Bronchitis, not specified as acute or chronic; I10 Essential (primary) hypertension; E11.9 Type 2 diabetes mellitus without complications; F17.210 Nicotine dependence, cigarettes, uncomplicated; Z90.49 Acquired absence of other specified parts of digestive tract; Z88.6 Allergy status to analgesic agent

== ENCOUNTER → 2020-02-25 | Outpatient (CLI) | payer OTHER, MEDICAID ==
[~2020-02-25] MED LIST changes: +DOXYCYCLINE 10100 M2 PO
== END ==
LOC: M.ULTRA 12:44
PROVIDERS: ATTEND Internal Medicine
DX: R60.0 Localized edema (principal)

== ENCOUNTER 2020-04-14 13:15 | Emergency (ER) | payer OTHER, MEDICAID ==
[~2020-04-14] VITALS: Ht 149.9 cm; Wt 72.6 kg
[2020-04-14 14:19] LABS: HEMATOCRIT 37.7 % (37.0-47.0); MCH 23.5 pg (26.0-34.0); MCHC 31.8 g/dL (28.0-37.0); MCV 74.1 fL (80.0-100.0); MPV 7.4 fl. (7.2-11.1); NUCLEATED RBCS 0 /100WBC; PLATELET COUNT* 300 thou/uL (150-400); RBC 5.08 mil/uL (4.20-5.00); RDW-CV 18.9 % (10.5-14.5); WBC 10.9 thou/uL (4.0-11.0)
[2020-04-14 14:30] LABS: CALCIUM 8.2 mg/dL (8.5-10.1); POTASSIUM 4.1 mmol/L (3.5-5.1)
[2020-04-14 14:33] LABS: APTT 28.2 Seconds (25.0-31.3); INR 1.3; PROTIME 13.8 Seconds (9.20-11.50)
[2020-04-14 14:45] LABS: ALBUMIN 3.6 g/dL (3.4-5.0); TOTAL BILIRUBIN 1.3 mg/dL (<0.1-1.0); TOTAL PROTEIN 7.5 g/dL (6.4-8.2)
[2020-04-14 15:08] LABS: ABSOLUTE BASOPHILS 0.2 thou/uL (0.0-0.2); ABSOLUTE EOSINOPHILS 0.1 thou/uL (0.0-0.7); ABSOLUTE LYMPHOCYTES 1.3 thou/uL (0.8-5.3); ABSOLUTE MONOCYTES 1.2 thou/uL (0.0-1.2); ABSOLUTE NEUTROPHILS 8.1 thou/uL (1.6-8.1); GIANT PLATELETS FEW; PLATELET ESTIMATE ADEQUATE
[2020-04-14 15:10] LABS: ANISOCYTOSIS 1+; CLUMPED PLTS RARE; HYPOCHROMASIA 1+; MICROCYTES 1+; OVALOCYTES Occasional; POLYCHROMASIA 1+; TEARDROPS Occasional
[2020-04-14] MEDS ORDERED: VENTOLIN HFA 1818 GM INH (15:14)
[2020-04-14] MEDS ORDERED: ZPAK PO (15:14)
[2020-04-14] MEDS ORDERED: MEDROLDOSEPACK PO (15:14)
[2020-04-14] MEDS ORDERED: NORCO 5-325 TA1 EAC2 PO (15:16)
[2020-04-14 15:27] VITALS: BP 115/63
--- NOTE | 2020-04-15 12:21 | EKG ---
[place] [address] ELECTROCARDIOGRAM REPORT Name: NICOLE EDMOND Room: [facility]#: [id number] Admission: 04/14/20 Attend Phys: Discharge: 04/14/20 Date of : 56 Date of Service: 04/14/20 1345 Report #: [id number] THIS REPORT FOR: //name// [facility] ED Test Date: 2020-04-14 Test Time: 13:45:23 Pat Name: NICOLE EDMOND Department: Room: Gender: F Mechanical System Technician: MS : 1960 Requested By: Melchor Puente Order Number: [id number] MD: Obey Caputo Measurements Intervals [place] Rate: 72 P: 70 CO: 150 QRS: 2 QRSD: 104 T: 163 QT: 448 QTc: 491 Interpretive Statements Sinus rhythm Left atrial enlargement, possible Nonspecific T abnormalities, lateral leads Borderline prolonged QT interval Compared to ECG 02/13/2020 23:38:53 Atrial abnormality now present T-wave abnormality now present Left ventricular hypertrophy no longer present Early repolarization no longer present Electronically Signed On 04-15-2020 12:21:12 DIGITAL RECRUITER by Obey Caputo [email or web address] <ELECTRONICALLY SIGNED> By: Obey Caputo MD, FACC 04/15/20 1221 1345 1345 Obey Caputo MD, FACC /EPI
== END 2020-04-14 15:28 | disposition home or self-care (01) ==
LOC: M.ERS 13:15
PROVIDERS: Family Medicine
DX: J98.8 Other specified respiratory disorders (principal); I51.7 Cardiomegaly; R60.0 Localized edema; R79.89 Other specified abnormal findings of blood chemistry; Z20.828 Contact with and (suspected) exposure to other viral communicable diseases; I10 Essential (primary) hypertension; E11.9 Type 2 diabetes mellitus without complications; E78.5 Hyperlipidemia, unspecified; Z90.49 Acquired absence of other specified parts of digestive tract; F17.210 Nicotine dependence, cigarettes, uncomplicated; Z88.6 Allergy status to analgesic agent

== ENCOUNTER 2020-04-29 10:51 | Emergency (ER) | payer MEDICAID ==
[~2020-04-29] VITALS: Ht 149.9 cm; Wt 77.6 kg
[~2020-04-29 10:51] MED LIST changes: +MEDROLDOSEPACK PO; +VENTOLIN HFA 1818 GM INH; +ZPAK PO
[2020-04-29 12:07] LABS: ABSOLUTE BASOPHILS 0.1 thou/uL (0.0-0.2); ABSOLUTE EOSINOPHILS 0.1 thou/uL (0.0-0.7); ABSOLUTE LYMPHOCYTES 0.8 thou/uL (0.8-5.3); ABSOLUTE MONOCYTES 1.1 thou/uL (0.0-1.2); ABSOLUTE NEUTROPHILS 9.2 thou/uL (1.6-8.1); BASOPHILS 0.7 %; EOSINOPHILS 0.7 %; HEMATOCRIT 33.9 % (37.0-47.0); HEMOGLOBIN 10.6 gm/dL (12.0-15.0); LYMPHOCYTES 6.7 %; MCH 22.7 pg (26.0-34.0); MCHC 31.3 g/dL (28.0-37.0); MCV 72.7 fL (80.0-100.0); MPV 6.9 fl. (7.2-11.1); NUCLEATED RBCS 0 /100WBC; PLATELET COUNT* 205 thou/uL (150-400); POLYS 81.9 %; RBC 4.67 mil/uL (4.20-5.00); RDW-CV 19.2 % (10.5-14.5); WBC 11.2 thou/uL (4.0-11.0)
[2020-04-29 12:21] LABS: CALCIUM 7.9 mg/dL (8.5-10.1); CREATININE 0.9 mg/dL (0.6-1.3); POTASSIUM 3.9 mmol/L (3.5-5.1)
[2020-04-29 12:32] LABS: ALBUMIN 3.2 g/dL (3.4-5.0); TOTAL BILIRUBIN 1.1 mg/dL (<0.1-1.0); TOTAL PROTEIN 6.7 g/dL (6.4-8.2)
[2020-04-29 12:41] LABS: PLATELET ESTIMATE ADEQUATE
[2020-04-29 12:42] LABS: ANISOCYTOSIS 1+; HYPOCHROMASIA 2+; MICROCYTES 1+; OVALOCYTES 1+
[2020-04-29] MEDS ORDERED: TRAMADOL 50 MG50 MG PO (14:14)
[2020-04-29 14:22] VITALS: BP 130/82
--- NOTE | 2020-04-30 12:47 | EKG ---
[place] [address] ELECTROCARDIOGRAM REPORT Name: NICOLE EDMOND Room: [facility]#: [id number] Admission: 04/29/20 Attend Phys: Discharge: 04/29/20 Date of : 56 Date of Service: 04/29/20 1108 Report #: [id number] THIS REPORT FOR: //name// [facility] ED Test Date: 2020-04-29 Test Time: 11:08:06 Pat Name: NICOLE EDMOND Department: Room: Gender: F Photographer'S Assistant: IRON : 1960 Requested By: Yoel Infante Order Number: [id number] MD: Emeka Han Measurements Intervals [place] Rate: 85 P: 75 MS: 162 QRS: 2 QRSD: 97 T: 131 QT: 422 QTc: 502 Interpretive Statements Sinus rhythm Consider left atrial enlargement Borderline repolarization abnormality Prolonged QT interval Compared to ECG 04/14/2020 13:45:23 T-wave abnormality no longer present Electronically Signed On 04-30-2020 12:47:44 AUTOMATION CONTROLS EXPERT by Emeka Han [email or web address] <ELECTRONICALLY SIGNED> By: Marlene Han MD, [facility] 04/30/20 1247 1108 1108 Marlene Han MD, [facility] /EPI
== END 2020-04-29 14:23 | disposition home or self-care (01) ==
LOC: M.ERS 10:51
PROVIDERS: Emergency Medicine
DX: E83.51 Hypocalcemia (principal); I87.2 Venous insufficiency (chronic) (peripheral); R60.0 Localized edema; F17.210 Nicotine dependence, cigarettes, uncomplicated; I10 Essential (primary) hypertension; E11.9 Type 2 diabetes mellitus without complications; E78.5 Hyperlipidemia, unspecified; Z88.6 Allergy status to analgesic agent; Z79.899 Other long term (current) drug therapy; Z90.49 Acquired absence of other specified parts of digestive tract; Z98.890 Other specified postprocedural states

== ENCOUNTER 2020-05-09 20:40 | Emergency (ER) | payer MEDICAID ==
[~2020-05-09] VITALS: Ht 149.9 cm; Wt 77.1 kg
[2020-05-09 21:29] LABS: ABSOLUTE EOSINOPHILS 0.3 thou/uL (0.0-0.7); ABSOLUTE LYMPHOCYTES 1.1 thou/uL (0.8-5.3); ABSOLUTE NEUTROPHILS 6.3 thou/uL (1.6-8.1); BASOPHILS 0.4 %; EOSINOPHILS 3.2 %; HEMOGLOBIN 10.7 gm/dL (12.0-15.0); LYMPHOCYTES 12.7 %; MCH 22.4 pg (26.0-34.0); MCHC 31.6 g/dL (28.0-37.0); MCV 70.9 fL (80.0-100.0); MONOCYTES 11.9 %; MPV 6.7 fl. (7.2-11.1); NUCLEATED RBCS 0 /100WBC; PLATELET COUNT* 240 thou/uL (150-400); POLYS 71.8 %; RBC 4.79 mil/uL (4.20-5.00); WBC 8.8 thou/uL (4.0-11.0)
[2020-05-09 21:43] LABS: APTT 28.1 Seconds (25.0-31.3); INR 1.3; PROTIME 13.6 Seconds (9.20-11.50)
[2020-05-09 21:45] LABS: CALCIUM 7.6 mg/dL (8.5-10.1); CREATININE 0.9 mg/dL (0.6-1.3)
[2020-05-09 21:46] LABS: POTASSIUM 2.8 mmol/L (3.5-5.1)
[2020-05-09 21:50] LABS: ALBUMIN 3.5 g/dL (3.4-5.0); TOTAL PROTEIN 6.9 g/dL (6.4-8.2)
[2020-05-09] MEDS ORDERED: BACTRIM DS TAB1 EACH PO (21:58)
[2020-05-09] MEDS ORDERED: KEFLEX500 M1 PO (21:58)
[2020-05-09] MEDS ORDERED: HYDROCODON-ACE1 EAC7 PO (22:13)
[2020-05-09 22:30] VITALS: BP 122/68
[2020-05-09 23:25] LABS: ANISOCYTOSIS 1+; HYPOCHROMASIA 2+; MICROCYTES 2+
[2020-05-09 23:26] LABS: PLATELET ESTIMATE ADEQUATE
--- NOTE | 2020-05-10 13:52 | EKG ---
[place] [address] ELECTROCARDIOGRAM REPORT Name: NICOLE EDMOND Room: [facility]#: [id number] Admission: 05/09/20 Attend Phys: Discharge: 05/09/20 Date of : 56 Date of Service: 05/09/202223 Report #: [id number] THIS REPORT FOR: //name// [facility] ED Test Date: 2020-05-09 Test Time: 22:24:00 Pat Name: NICOLE EDMOND Department: Room: Gender: F Office Administration: [facility] : 1960 Requested By: Kenya Fernandez Order Number: [id number] MD: Nas Goodman Measurements Intervals [place] Rate: 88 P: 78 PA: 166 QRS: 8 QRSD: 100 T: 173 QT: 429 QTc: 519 Interpretive Statements Sinus rhythm Probable left atrial enlargement Nonspecific repol abnormality, lateral leads Prolonged QT interval Compared to ECG 04/29/2020 11:08:06 No significant changes Electronically Signed On 05-10-2020 13:52:20 HUMAN RESOURCES BENEFITS ADMINISTRATOR by Nas Goodman [email or web address] <ELECTRONICALLY SIGNED> By: Nas Goodman MD, FAC 05/10/20 1352 2224 2224 Nas Goodman MD, [facility] /EPI
== END 2020-05-09 22:30 | disposition home or self-care (01) ==
LOC: M.ERS 20:40
PROVIDERS: Nurse Practitioner Family
DX: L03.115 Cellulitis of right lower limb (principal); F17.210 Nicotine dependence, cigarettes, uncomplicated; I10 Essential (primary) hypertension; E11.9 Type 2 diabetes mellitus without complications; E78.5 Hyperlipidemia, unspecified; Z90.49 Acquired absence of other specified parts of digestive tract; Z79.899 Other long term (current) drug therapy; Z98.890 Other specified postprocedural states

== ENCOUNTER → 2020-08-28 | Outpatient (CLI) | payer OTHER, MEDICAID ==
[~2020-08-28] MED LIST changes: +BACTRIM DS TAB1 EACH PO; +KEFLEX500 M1 PO
== END ==
LOC: M.LAB 16:50
PROVIDERS: ATTEND Internal Medicine Critical Care Medicine
DX: R06.02 Shortness of breath (principal); R60.0 Localized edema

== ENCOUNTER → 2020-09-08 | Outpatient (CLI) | payer OTHER, MEDICAID | LOC: M.SLEEPLAB 20:49 | PROVIDERS: ATTEND Internal Medicine Critical Care Medicine | DX: G47.19 Other hypersomnia (principal) ==

== ENCOUNTER → 2020-09-13 | Outpatient (CLI) | payer OTHER, MEDICAID | LOC: M.CT 13:23 | PROVIDERS: ATTEND Internal Medicine Critical Care Medicine | DX: R79.89 Other specified abnormal findings of blood chemistry (principal); R06.02 Shortness of breath ==

== ENCOUNTER 2020-09-25 15:57 | Emergency (ER) | payer OTHER, MEDICAID ==
[~2020-09-25] VITALS: Ht 149.9 cm; Wt 62.1 kg
[2020-09-25] MEDS ORDERED: HYDROCODON-ACE1 EAC7 PO (20:08)
[2020-09-25 20:27] VITALS: BP 132/78
== END 2020-09-25 20:27 | disposition home or self-care (01) ==
LOC: M.ERS 15:57
DX: S22.32XA Fracture of one rib, left side, initial encounter for closed fracture (principal); S39.012A Strain of muscle, fascia and tendon of lower back, initial encounter; S16.1XXA Strain of muscle, fascia and tendon at neck level, initial encounter; I10 Essential (primary) hypertension; E11.9 Type 2 diabetes mellitus without complications; E78.5 Hyperlipidemia, unspecified; F17.210 Nicotine dependence, cigarettes, uncomplicated; Z88.6 Allergy status to analgesic agent; Z79.899 Other long term (current) drug therapy; Z98.890 Other specified postprocedural states; W01.198A Fall on same level from slipping, tripping and stumbling with subsequent striking against other object, initial encounter; Y93.89 Activity, other specified; Y92.89 Other specified places as the place of occurrence of the external cause; Y99.9 Unspecified external cause status

== ENCOUNTER 2020-11-07 13:00 | Emergency (ER) | payer OTHER, MEDICAID ==
[~2020-11-07] VITALS: Ht 149.9 cm; Wt 59.9 kg
[2020-11-07] MEDS ORDERED: FLEXERIL PO (15:54)
[2020-11-07 16:22] VITALS: BP 112/60
== END 2020-11-07 16:23 | disposition home or self-care (01) ==
LOC: M.ERS 13:00
DX: S51.012A Laceration without foreign body of left elbow, initial encounter (principal); S93.491A Sprain of other ligament of right ankle, initial encounter; S63.592A Other specified sprain of left wrist, initial encounter; S16.1XXA Strain of muscle, fascia and tendon at neck level, initial encounter; S09.8XXA Other specified injuries of head, initial encounter; I10 Essential (primary) hypertension; E11.9 Type 2 diabetes mellitus without complications; E78.5 Hyperlipidemia, unspecified; F17.210 Nicotine dependence, cigarettes, uncomplicated; Z90.49 Acquired absence of other specified parts of digestive tract; Z88.6 Allergy status to analgesic agent; W10.8XXA Fall (on) (from) other stairs and steps, initial encounter; Y93.89 Activity, other specified; Y92.89 Other specified places as the place of occurrence of the external cause; Y99.8 Other external cause status

== ENCOUNTER 2020-12-04 13:50 | Emergency (ER) | payer OTHER, MEDICAID ==
[~2020-12-04] VITALS: Ht 149.9 cm; Wt 49.9 kg
[2020-12-04] MEDS ORDERED: BACTRIM DS TAB1 EACH PO (15:08)
[2020-12-04] MEDS ORDERED: HYDROCODON-ACE1 EAC7 PO (15:08)
[2020-12-04 15:19] VITALS: BP 134/68
== END 2020-12-04 15:20 | disposition home or self-care (01) ==
LOC: M.ERS 13:50
DX: L08.89 Other specified local infections of the skin and subcutaneous tissue (principal); I10 Essential (primary) hypertension; E11.9 Type 2 diabetes mellitus without complications; E78.5 Hyperlipidemia, unspecified; Z90.49 Acquired absence of other specified parts of digestive tract; F17.210 Nicotine dependence, cigarettes, uncomplicated; Z88.6 Allergy status to analgesic agent; Z79.899 Other long term (current) drug therapy

== ENCOUNTER 2021-02-13 12:50 | Emergency (ER) | payer OTHER, MEDICAID ==
[~2021-02-13] VITALS: Ht 149.9 cm; Wt 59.0 kg
[2021-02-13 14:41] VITALS: BP 122/68
== END 2021-02-13 14:42 | disposition home or self-care (01) ==
LOC: M.ERS 12:50
DX: S52.512A Displaced fracture of left radial styloid process, initial encounter for closed fracture (principal); I10 Essential (primary) hypertension; E11.9 Type 2 diabetes mellitus without complications; E78.5 Hyperlipidemia, unspecified; F17.210 Nicotine dependence, cigarettes, uncomplicated; Z79.899 Other long term (current) drug therapy; Z90.49 Acquired absence of other specified parts of digestive tract; Z88.6 Allergy status to analgesic agent; W19.XXXA Unspecified fall, initial encounter; Y93.89 Activity, other specified; Y92.89 Other specified places as the place of occurrence of the external cause; Y99.8 Other external cause status

== ENCOUNTER 2021-05-21 14:27 | Inpatient (IN) | payer OTHER, MEDICAID ==
[~2021-05-21] VITALS: Ht 149.9 cm; Wt 48.1 kg
--- NOTE | ~2021-05-21 | CON ---
[address] [address] CONSULTATION Name: CONCEPCIÓNEPIFANIO BOWMANINE Room: [address] IN M.R.#: [id number] Admission: 05/21/21 Attend Phys: Lili Harden MD Discharge: Date of : 56 Report #: [id number] THIS REPORT FOR: cc: Tegan White MD, Lin W. MD Namin, Farid M. MD ~ cc: Tegan White MD DATE OF CONSULTATION: 05/23/2021 Please note at the time of this dictation, the patient was seen and physically examined by myself. REASON FOR CONSULTATION: Anemia. HISTORY OF PRESENT ILLNESS: This is a 60-year-old female who presented to the Emergency Room with worsening of her shortness of breath, both daytime and nighttime and worsening with exertion. She denied any chest pain at this time. Upon arrival to the ER, her BNP was noted to be 35,000 and diagnosed with being in heart failure. Echocardiogram showed severe LV systolic dysfunction with an EF of 15-20%. The patient states she has had EGD and colonoscopies done in the past, but it has been very remotely. She thought they have been done here, but I do not see anything here in her chart, nor do we have anything documented in our office. The patient states she does have a history of GERD, which she takes medicine for. She states her bowels move daily, soft and formed with no issues and she has not noticed any bright red blood or any melena. The patient has lost 70 pounds over the last 2 months. She states she is continuing to eat. No change in her bowel habits and she is concerned regarding this weight loss. ALLERGIES: ASPIRIN. MEDICATIONS FROM HOME: Include lisinopril, risedronate weekly, ProAir, atorvastatin, bupropion, multivitamin, MiraLax, Voltaren, Flonase, Toprol, Ultram, omeprazole, Abilify, Caltrate, Neurontin, magnesium citrate and hydroxyzine. PAST MEDICAL HISTORY: Osteoporosis, hypertension, BATRES, uterine fibroids. She had a history of constipation, type 2 diabetes, high cholesterol. She has had throat issues where a growth was removed from her vocal cords, PTSD. PAST SURGICAL HISTORY: She had a right ankle surgery, cholecystectomy. FAMILY HISTORY: Denies any GI or female cancers. SOCIAL HISTORY: Current smoker daily, a pack per day for 44 years[place] [address] CONSULTATION Name: NICOLE EDMOND Room: [address]#: [id number] Admission: 05/21/21 Attend Phys: Lili Harden MD Discharge: Date of : 56 Report #: [id number] alcohol. She would not quantify. REVIEW OF SYSTEMS: Twelve-point review of systems is essentially negative except what is mentioned in the HPI. PHYSICAL EXAMINATION: VITAL SIGNS: Temperature 36.2, pulse 94, respirations 18, blood pressure 113/62. HEART: Regular rate and rhythm. LUNGS: Clear, slightly diminished. Peripheral pulses present. Edema improving. ABDOMEN: Soft, positive bowel sounds in all 4 quadrants with no masses or tenderness noted. LABORATORY DATA: Hemoglobin on admission was 12.2. Previous admissions, she has been up to 13 in 2019. She is down to 10.4. White count is 12.4, platelets is 177. GFR is 56. BUN is 20, creatinine is 1. Her BNP on admission was greater than 35,000, hemoglobin A1c was 10.1. Iron 36, TIBC 411. Percentage sat is 9. Iron is 36. Ferritin is 57, total bilirubin is 1.4. Initially on admission, she was 1.9. Alkaline phosphatase was 230 and it is down to 193, ALT 39 and it is now 35, AST was 125 and it is now 86. CT scan imaging, abdominal ultrasound showed diffuse fatty liver, absent gallbladder, otherwise normal. IMPRESSION: 1. Anemia. 2. Transaminitis. 3. Weight loss of 70 pounds in 2 months. 4. Gastroesophageal reflux disease. 5. BATRES history per patient. 6. Leukocytosis. 7. Congestive heart failure, ejection fraction 15-20%. 8. Shortness of air, improved. 9. Diabetes, poorly controlled. PLAN: 1. EGD and colonoscopy tomorrow to evaluate her anemia and her weight loss. 2. Obtain labs, AFP, acute hepatitis panel, and GGTP. 3. Monitor for any overt bleeding. 4. Further recommendations to be made once Dr. White sees the patient and the procedure [place] [address] CONSULTATION Name: NICOLE EDMOND Room: [address] IN [facility].#: [id number] Admission: 05/21/21 Attend Phys: Lili Harden MD Discharge: Date of : 56 Report #: [id number] Thank you for allowing us to participate in this patient's care. Please do not hesitate to call with any questions regarding this consult. By: 1249 1836Latasha White MD /nt
[~2021-05-21 14:27] MED LIST changes: +VOLTAREN ARTHRI20 GM TOP; -VOLTAREN GEL 1100 G1 TOP
[2021-05-21 14:37] VITALS: BP 95/62
[2021-05-21 15:33] LABS: HEMATOCRIT 37.8 % (37.0-47.0); HEMOGLOBIN 12.2 gm/dL (12.0-15.0); MCHC 32.3 g/dL (28.0-37.0); MCV 86.8 fL (80.0-100.0); MPV 8.2 fl. (7.2-11.1); NUCLEATED RBCS 0 /100WBC; PLATELET COUNT* 276 thou/uL (150-400); RBC 4.36 mil/uL (4.20-5.00); RDW-CV 16.8 % (10.5-14.5); WBC 14.1 thou/uL (4.0-11.0)
[2021-05-21 15:48] LABS: ANION GAP 13 mmol/L (7-16); BUN 34 mg/dL (7-18); CALCIUM 8.2 mg/dL (8.5-10.1); CHLORIDE 96 mmol/L (98-107); CO2 26 mmol/L (21-32); CREATININE 1.5 mg/dL (0.6-1.3); GLUCOSE 87 mg/dL (70-99); POTASSIUM 4.5 mmol/L (3.5-5.1); SODIUM 135 mmol/L (136-145)
[2021-05-21 15:59] LABS: ALBUMIN 3.1 g/dL (3.4-5.0); ALKALINE PHOSPHATASE 230 U/L (46-116); NT-PRO BRAIN NAT PEPTIDE > 35000 pg/mL (<300); SGOT 125 U/L (15-37); SGPT 39 U/L (30-65); TOTAL BILIRUBIN 1.9 mg/dL (<0.1-1.0); TOTAL PROTEIN 7.6 g/dL (6.4-8.2)
[2021-05-21 16:18] LABS: ABSOLUTE BASOPHILS 0.1 thou/uL (0.0-0.2); ABSOLUTE MONOCYTES 0.4 thou/uL (0.0-1.2); ABSOLUTE NEUTROPHILS 12.5 thou/uL (1.6-8.1)
[2021-05-21 16:21] LABS: ANISOCYTOSIS 1+; LARGE PLATELETS OCCASIONAL; PLATELET ESTIMATE ADEQUATE; POLYCHROMASIA Occasional
[2021-05-21 22:03] VITALS: BP 108/72
[2021-05-21 22:10] VITALS: BP 105/71
[2021-05-22 04:00] VITALS: BP 94/61
[2021-05-22 05:39] LABS: HEMATOCRIT 32.5 % (37.0-47.0); HEMOGLOBIN 10.5 gm/dL (12.0-15.0); MCHC 32.2 g/dL (28.0-37.0); RBC 3.74 mil/uL (4.20-5.00); RDW-CV 16.7 % (10.5-14.5); WBC 12.8 thou/uL (4.0-11.0)
[2021-05-22 05:56] LABS: CALCIUM 7.6 mg/dL (8.5-10.1); CREATININE 1.4 mg/dL (0.6-1.3)
[2021-05-22 06:00] LABS: POTASSIUM 3.4 mmol/L (3.5-5.1)
[2021-05-22 06:04] LABS: MAGNESIUM 0.7 mg/dL (1.8-2.4)
[2021-05-22 08:00] VITALS: BP 91/59
--- NOTE | 2021-05-22 08:35 | EKG ---
[place] [address] ELECTROCARDIOGRAM REPORT Name: NICOLE EDMOND Room: [address] ADM IN .R.#: [id number] Admission: 05/21/21 Attend Phys: Lili Harden, Discharge: Date of : 56 Date of Service: 05/21/21 1805 Report #: [id number] THIS REPORT FOR: //name// [facility] ED Test Date: 2021-05-21 Test Time: 18:05:14 Pat Name: NICOLE EDMOND Department: Room: [facility] Gender: F Fingerprint Technician: KIP : 1960 Requested By: Kenya Fernandez Order Number: [id number] MD: Obey Caputo Measurements Intervals [place] Rate: 87 P: 21 [place]: 194 QRS: -9 QRSD: 106 T: 157 QT: 431 QTc: 519 Interpretive Statements Sinus rhythm Left atrial enlargement ST segment depression lateral leads, consider ischemia Abnormal R-wave progression, late transition Prolonged QT interval Compared to ECG 05/09/2020 22:24:00 No significant changes noted Electronically Signed On 05-22-2021 8:35:22 COIL MACHINE OPERATOR by Obey Caputo [email or web address] <ELECTRONICALLY SIGNED> By: Obey Caputo MD, FAC 05/22/21 0835 1805 1805 Obey Caputo MD, [facility] /EPI
--- NOTE | 2021-05-22 10:48 | EKG ---
[place] [address] ELECTROCARDIOGRAM REPORT Name: NICOLE EDMOND Room: [address] ADM IN M.R.#: [id number] Admission: 05/21/21 Attend Phys: Lili Harden, Discharge: Date of : 56 Date of Service: 05/22/21 0948 Report #: [id number] THIS REPORT FOR: //name// [facility] Test Date: 2021-05-22 Test Time: 09:48:33 Pat Name: NICOLE EDMOND Department: Room: [address] Gender: F Candy Cutter Hand: BIANCA : 1960 Requested By: Lili Harden Order Number: [id number] MD: Obey Caputo Measurements Intervals [place] Rate: 86 P: 79 [place]: 165 QRS: -3 QRSD: 99 T: 189 QT: 391 QTc: 468 Interpretive Statements Sinus rhythm Left atrial enlargement Repol abnrm suggests ischemia, lateral leads Compared to ECG 05/21/2021 18:05:14 Early repolarization now present Prolonged QT interval no longer present Possible ischemia still present Electronically Signed On 05-22-2021 10:48:02 HOUSE PAINTER by Obey Caputo [email or web address] <ELECTRONICALLY SIGNED> By: Obey Caputo MD, FACC 05/22/21 1048 0948 Obey Caputo MD, [facility] /EPI
[2021-05-22 12:00] VITALS: BP 103/65
--- NOTE | 2021-05-22 12:27 | 2DMMODE ---
[place] [address] 2 D/M-MODE ECHOCARDIOGRAM Name: NICOLE EDMOND Room: [address] IN [facility]#: [id number] Admission: 05/21/21 Attend Phys: Lili Harden, Discharge: Date of : 56 Date of Service: 05/22/21 1227 Report #: [id number] THIS REPORT FOR: cc: Tegan White MD, Lin W. MD Liston, Michael J. MD [facility] ~ APPROVED REPORT Study performed: 05/22/2021 09:47:49 EXAM: Comprehensive 2D, Doppler, and color-flow Echocardiogram Patient Location: In-Patient Room #: 228 Status: routine BSA: 1.43 HR: 85 bpm Rhythm: NSR Other Information Study Quality: Good Indications Congestive Heart Failure 2D Dimensions IVSd: 8.54 (7-11mm) LVOT Diam: 18.10 (18-24mm) LVDd: 53.68 mm PWd: 9.19 (7-11mm) Ascending Ao: 27.41 (22-36mm) LVDs: 52.79 (25-40mm) Aortic Root: 24.17 mm Volumes Left Atrial Volume (Systole) LA ESV Index: 66.20 mL/m2 Aortic Valve AoV Peak Felipe.: 1.27 m/s AO Peak Gr.: 6.40 mmHg LVOT Max P.12 mmHg AO Mean Gr.: 3.41 mmHg LVOT Mean P.97 mmHg LVOT Max V: 0.73 m/s AO V2 VTI: 17.35 cm LVOT Mean V: 0.45 m/s DINH (VTI): 1.34 cm2 LVOT V1 VTI: 9.01 [place] [address] 2 D/M-MODE ECHOCARDIOGRAM Name: NICOLE EDMOND Room: [address] IN ..#: [id number] Admission: 05/21/21 Attend Phys: Lili Harden, Discharge: Date of : 56 Date of Service: 05/22/21 1227 Report #: [id number] Mitral Valve E/A Ratio: 2.43 MV Decel. Time: 116.90 ms MV E Max Felipe.: 1.30 m/s MV PHT: 33.90 ms MVA (PHT): 6.49 cm2 TDI E/Lateral E': 11.82 Lateral E' Felipe.: 0.11 m/s Pulmonary Valve PV Peak Felipe.: 0.66 m/s PV Peak Gr.: 1.74 mmHg Tricuspid Valve RAP Estimate: 10.00 mmHg TR Peak Gr.: 42.12 mmHg RVSP: 52.00 mmHg PA Pressure: 52.00 mmHg Left Ventricle Left ventricle is moderately dilated. There is global hypokinesis. There is normal left ventricular wall thickness. Left ventricular systolic function is severely decreased. LVEF is 15-20%. Transmitral Doppler flow pattern suggests restrictive physiology. Right Ventricle Right ventricle is moderately dilated. The right ventricular systolic function is normal. Atria Left atrium is severely dilated. Right atrium is severely dilated. Aortic Valve Mild aortic valve sclerosis. Trace aortic regurgitation. Mild aortic stenosis. Mitral Valve The mitral valve is normal in structure. Moderate mitral regurgitation. No evidence of mitral valve stenosis. Tricuspid Valve The tricuspid valve is normal in structure. Moderate tricuspid regurgitation. The RVSP is 55-60 mmHg.Moderate pulmonary [place] [address] 2 D/M-MODE ECHOCARDIOGRAM Name: FELINICOLE Room: [address] IN [facility].#: [id number] Admission: 05/21/21 Attend Phys: Lili Harden, Discharge: Date of : 56 Date of Service: 05/22/21 1227 Report #: [id number] Pulmonic Valve The pulmonary valve is normal in structure. There is no pulmonic valvular regurgitation. Great Vessels The aortic root is normal in size. IVC is dilated and collapses <50% with inspiration. Pericardium There is no pericardial effusion. <Conclusion> Left ventricle is moderately dilated. There is normal left ventricular wall thickness. Left ventricular systolic function is severely decreased. LVEF is 15-20%. Transmitral Doppler flow pattern suggests restrictive physiology. There is global hypokinesis. Right ventricle is moderately dilated. Left atrium is severely dilated. Right atrium is severely dilated. Mild aortic valve sclerosis. Trace aortic regurgitation. Moderate mitral regurgitation. The RVSP is 55-60 mmHg.Moderate pulmonary hypertension. Moderate tricuspid regurgitation. IVC is dilated and collapses <50% with inspiration. <ELECTRONICALLY SIGNED> By: Obey Caputo MD, FACC 05/22/21 [phone] Obey Caputo MD, FACC /INF
[2021-05-22 14:13] LABS: URINE BILIRUBIN NEGATIVE (Negative); URINE BLOOD NEGATIVE (Negative); URINE CLARITY CLEAR; URINE COLOR YELLOW; URINE GLUCOSE-RANDOM NEGATIVE (Negative); URINE KETONES NEGATIVE (Negative); URINE LEUKOCYTES-REFLEX NEGATIVE (Negative); URINE NITRITE-REFLEX NEGATIVE (Negative); URINE PROTEIN NEGATIVE (Negative); URINE UROBILINOGEN 0.2 E.U./dl (0.2-1.0)
[2021-05-22 16:00] VITALS: BP 105/65
[2021-05-22 19:17] LABS: MAGNESIUM 0.7 mg/dL (1.8-2.4)
[2021-05-22 20:00] VITALS: BP 102/66
[2021-05-23] VITALS: BP 95/63
[2021-05-23 04:29] VITALS: BP 100/68
[2021-05-23 04:51] LABS: HEMATOCRIT 32.3 % (37.0-47.0); HEMOGLOBIN 10.4 gm/dL (12.0-15.0); MCHC 32.3 g/dL (28.0-37.0); MCV 86.8 fL (80.0-100.0); MPV 7.6 fl. (7.2-11.1); RBC 3.72 mil/uL (4.20-5.00); RDW-CV 16.7 % (10.5-14.5); WBC 12.4 thou/uL (4.0-11.0)
[2021-05-23 05:24] LABS: ALBUMIN 2.4 g/dL (3.4-5.0); ALKALINE PHOSPHATASE 193 U/L (46-116); ANION GAP 7 mmol/L (7-16); BUN 20 mg/dL (7-18); CALCIUM 7.6 mg/dL (8.5-10.1); CHLORIDE 98 mmol/L (98-107); CHOLESTEROL 79 mg/dL (<200); CO2 29 mmol/L (21-32); GLUCOSE 78 mg/dL (70-99); HDL CHOLESTEROL 25 mg/dL (>40); LDL CHOLESTEROL 36 mg/dL (<100); POTASSIUM 3.9 mmol/L (3.5-5.1); SGOT 86 U/L (15-37); SGPT 35 U/L (30-65); SODIUM 134 mmol/L (136-145); TC:HDL 3.2 Ratio (Not establshd); TOTAL BILIRUBIN 1.4 mg/dL (<0.1-1.0); TOTAL PROTEIN 6.1 g/dL (6.4-8.2); TRIGLYCERIDE 93 mg/dL (<150); VLDL 19 mg/dL (<40)
[2021-05-23 05:50] LABS: SERUM ASSESSMENT Clear
[2021-05-23 08:00] VITALS: BP 110/79
--- NOTE | 2021-05-23 09:58 | CON ---
[address] [address] CONSULTATION Name: NICOLE EDMOND Room: [address] IN [facility].#: [id number] Admission: 05/21/21 Attend Phys: Lili Harden MD Discharge: Date of : 56 Report #: [id number] THIS REPORT FOR: cc: Tegan White MD, Lin W. MD Liston, Michael J. MD FACC ~ cc: Nas Goodman MD FACC, DATE OF CONSULTATION: 05/22/2021 CARDIOLOGY CONSULTATION INDICATION: Heart failure. HISTORY OF PRESENT ILLNESS: The patient is a 60-year-old white female who presents to the hospital with increasing shortness of breath, orthopnea, paroxysmal nocturnal dyspnea and dyspnea on exertion. She denies chest pain. She has a history of venous insufficiency involving the lower extremities. Over the past several days, she has noted increased swelling of her lower extremities. She presented to the Emergency Room for further evaluation with complaints of increased shortness of breath, dyspnea and orthopnea. She was admitted to the hospital with presumed diagnosis of heart failure. NT-proBNP was greater than 35,000. Initial troponin was unremarkable. EKG showed sinus rhythm with nonspecific ST-segment depression. Echocardiogram shows cardiomegaly with severe LV systolic dysfunction with an EF of 15-20%. There is no history of coronary artery disease. PAST MEDICAL HISTORY: 1. Chronic diastolic heart failure. 2. Type 2 diabetes mellitus. 3. Venous insufficiency. 4. Palpitations. 5. COPD. 6. Nonalcoholic steatohepatitis. 7. Status post cholecystectomy. 8. Previous rib fracture. 9. Previous ankle fracture. 10. Previous distal radius fracture. 11. History of hypokalemia. 12. History of Hyponatremia. 13. History of hypocalcemia. 14. Osteoporosis. 15. PTSD. 16. Hypertension. 17. [place] [address] CONSULTATION Name: NICOLE EDMOND Room: [address]#: [id number] Admission: 05/21/21 Attend Phys: Lili Harden MD Discharge: Date of : 56 Report #: [id number] 18. Hyperlipidemia. FAMILY HISTORY: Positive for coronary artery disease. SOCIAL HISTORY: The patient has a history of tobacco use. Past alcohol abuse, none recently. REVIEW OF SYSTEMS: Positive for shortness of breath, dyspnea and orthopnea as outlined above. The patient has PND. The patient reports lower extremity swelling exacerbated over the last several days. She has joint pain. Otherwise, 14-point review of systems as per HPI. PHYSICAL EXAMINATION: VITAL SIGNS: Blood pressure 91/59, pulse 81 and regular. GENERAL: This is a pleasant elderly female in no distress. Mood and affect appropriate. HEENT: The patient is wearing glasses. Extraocular muscles intact. Edentulous. Mucous membranes moist. NECK: Shows jugular venous distention. I do not appreciate bruit. CHEST: Reveals diminished breath sounds without obvious wheezes or rales. CARDIAC: Reveals a regular rhythm with normal S1 and S2. I do not appreciate gallop or murmur. ABDOMEN: Reveals normal bowel sounds. Abdomen is soft, nontender. EXTREMITIES: Shows 1+ pedal and ankle edema. There is chronic venous stasis changes noted. The patient has some varicosities noted. DIAGNOSTIC DATA: A 12-lead EKG shows sinus rhythm with nonspecific ST segment depression. Chest x-ray shows cardiomegaly without other acute cardiopulmonary process. LABORATORY DATA: Labs are reviewed. Sodium 138, potassium 3.4, chloride 99, bicarbonate 27, BUN 33, creatinine 1.4, serum glucose 79, AST 125, total bilirubin 1.9, ALT 39, alkaline phosphatase 230, calcium 7.6, magnesium 0.7, eGFR 38. Troponin high sensitivity 10. NT-proBNP greater than 35,000. INR 1.3, APTT 28.1. White blood cell count 12.8, hemoglobin 10.5, platelet count 188,000. IMPRESSION AND RECOMMENDATIONS: 1. Acute on chronic combined heart failure. The patient's blood pressure is too low to start heart failure regimen at this time. We will start dobutamine drip at 5 mcg per kilogram per minute without titration. Labs in a.m. We will consider starting heart failure medications as blood pressure tolerates. Gentle diuresis with 40 of IV Lasix daily at this time. [place] [address] CONSULTATION Name: NICOLE EDMOND Room: [address] IN [facility]#: [id number] Admission: 05/21/21 Attend Phys: Lili Harden MD Discharge: Date of : 56 Report #: [id number] 2. Cardiomyopathy. Likely nonischemic. We will initiate medical treatment as tolerated. 3. History of hyperlipidemia. Fasting lipid profile pending. 4. Hypertension. Blood pressure presently low. Holding antihypertensive medication at this time. 5. Acute renal failure. Labs in a.m. Careful diuresis at this time. Hopefully, will improve with dobutamine infusion. Suspect this is due to decreased output state. 6. Chronic obstructive pulmonary disease. Presently appears stable. <ELECTRONICALLY SIGNED> By: Obey Caputo MD, FACC 05/23/21 0958 [id number] Caputo MD, FACC /nt
[2021-05-23 12:00] VITALS: BP 113/62
[2021-05-23 17:45] VITALS: BP 110/78
[2021-05-23 20:00] VITALS: BP 110/70
[2021-05-24] VITALS: BP 97/59
[2021-05-24 04:00] VITALS: BP 108/67
[2021-05-24 04:21] LABS: HEMATOCRIT 32.7 % (37.0-47.0); HEMOGLOBIN 10.6 gm/dL (12.0-15.0); MCH 28.2 pg (26.0-34.0); MCHC 32.4 g/dL (28.0-37.0); MCV 86.9 fL (80.0-100.0); MPV 7.6 fl. (7.2-11.1); RBC 3.76 mil/uL (4.20-5.00); RDW-CV 16.5 % (10.5-14.5); WBC 13.5 thou/uL (4.0-11.0)
[2021-05-24 04:30] LABS: CALCIUM 7.3 mg/dL (8.5-10.1); CREATININE 0.8 mg/dL (0.6-1.3); MAGNESIUM 1.3 mg/dL (1.8-2.4)
[2021-05-24 05:02] LABS: POTASSIUM 2.9 mmol/L (3.5-5.1)
[2021-05-24 08:23] VITALS: BP 119/69
[2021-05-24 12:00] VITALS: BP 111/72
[2021-05-24 18:18] LABS: MAGNESIUM 1.2 mg/dL (1.8-2.4); POTASSIUM 3.5 mmol/L (3.5-5.1)
[2021-05-24 19:45] VITALS: BP 112/74
[2021-05-25 02:06] LABS: HEPATITIS B SURFACE AG Negative (Negative)
[2021-05-25 04:00] VITALS: BP 90/57
[2021-05-25 04:28] LABS: HEMATOCRIT 39.9 % (37.0-47.0); HEMOGLOBIN 12.5 gm/dL (12.0-15.0); MCH 27.5 pg (26.0-34.0); MCHC 31.3 g/dL (28.0-37.0); MCV 87.9 fL (80.0-100.0); MPV 7.4 fl. (7.2-11.1); RBC 4.53 mil/uL (4.20-5.00); WBC 13.2 thou/uL (4.0-11.0)
[2021-05-25 05:16] LABS: ALBUMIN 2.7 g/dL (3.4-5.0); CALCIUM 7.5 mg/dL (8.5-10.1); CREATININE 0.7 mg/dL (0.6-1.3); MAGNESIUM 2.2 mg/dL (1.8-2.4); POTASSIUM 3.5 mmol/L (3.5-5.1); TOTAL BILIRUBIN 1.6 mg/dL (<0.1-1.0); TOTAL PROTEIN 6.9 g/dL (6.4-8.2)
[2021-05-25 08:00] VITALS: BP 120/72
[2021-05-25 16:20] VITALS: BP 107/66
[2021-05-25 20:00] VITALS: BP 104/68
[2021-05-26] VITALS: BP 99/58
[2021-05-26 04:00] VITALS: BP 100/55
[2021-05-26 08:00] VITALS: BP 111/78
[2021-05-26 11:00] VITALS: BP 93/53
[2021-05-26] MEDS ORDERED: SPIRONOLACTONE25 MG PO (11:23)
[2021-05-26] MEDS ORDERED: ENTRESTO 24 MG1 EACH PO (11:23)
[2021-05-26] MEDS ORDERED: COREG6.25 MG PO (11:23)
[2021-05-26 14:49] VITALS: BP 93/53
--- NOTE | 2021-05-28 15:07 | PATH ---
[address] [address] PATHOLOGY RPT PROCEDURE Name: NICOLE EDMOND Room: [address] IN .R.#: [id number] Admission: 05/21/21 Date of : 56 Discharge: 05/26/21 Report #: [id number] Path Case #: [id number] [facility] Accession Number: [id number] . 01 Material submitted: . stomach - ANTRAL BIOPSIES- GASTRITIS . 01 Clinical history: . EGD AND COLONOSCOPY . 02 Diagnosis: Antral biopsies: - Moderate nonspecific chronic and active antral gastritis, negative for Helicobacter pylori organisms, granulomas and dysplasia. ([facility]:reuben; 05/28/2021) . Special stain: H. pylori immuno QMS 05/28/2021 1020 Local . 02 Electronically signed: . Jose M Whitmore MD, Pathologist NPI- [id number] . 01 Gross description: . The specimen is received in formalin, labeled "Franciscolli, Nicole, antral biopsy gastritis". Received are multiple irregular segments of pale sheikh to light brown tissue ranging in size from 0.2-0.3 cm in maximum dimensions. The specimen is entirely submitted in cassette A1. ([facility]; 05/25/2021) NRI/NRI 05/25/2021 1531 Local . 02 Pathologist provided ICD-10: K29.50 . 02 CPT . 449318, [id number] Specimen Comment: A courtesy copy of this report has been sent to [phone], [phone] Specimen Comment: [phone], Specimen Comment: Report sent to , DR GRIFFITHS / DR SHEFFIELD Performed at: 01 [facility] [address], [place], [place] [id number] MD Alexandru Richard MD Phone: [phone] Performed at: 02 [facility] [address], [place], [place] [id number] MD Jose M Whitmore MD Phone: [phone]
[2021-05-28 19:07] LABS: ANA INTERPRETATION Negative (())
== END 2021-05-26 17:05 | disposition home health service (06) | DRG 291 ==
LOC: M.ERS 14:27 → M.TBA-ER 17:04 → M.2W 17:04
PROVIDERS: Family Medicine; Internal Medicine Gastroenterology; Nurse Practitioner Adult Health; ADMIT Internal Medicine; ATTEND Internal Medicine
PROC: 0DB68ZX Excision of Stomach, Via Natural or Artificial Opening Endoscopic, Diagnostic (ICD-10-PCS; principal; 2021-05-24)
PROC: 0DJD8ZZ Inspection of Lower Intestinal Tract, Via Natural or Artificial Opening Endoscopic (ICD-10-PCS; principal; 2021-05-24)
DX: I13.0 Hypertensive heart and chronic kidney disease with heart failure and stage 1 through stage 4 chronic kidney disease, or unspecified chronic kidney disease (principal); I50.43 Acute on chronic combined systolic (congestive) and diastolic (congestive) heart failure; N17.9 Acute kidney failure, unspecified; I42.9 Cardiomyopathy, unspecified; Z20.822 Contact with and (suspected) exposure to COVID-19; M81.0 Age-related osteoporosis without current pathological fracture; E78.5 Hyperlipidemia, unspecified; K59.09 Other constipation; J44.9 Chronic obstructive pulmonary disease, unspecified; E78.00 Pure hypercholesterolemia, unspecified; R74.01 Elevation of levels of liver transaminase levels; R63.4 Abnormal weight loss; K21.9 Gastro-esophageal reflux disease without esophagitis; F17.210 Nicotine dependence, cigarettes, uncomplicated; I95.89 Other hypotension; K75.81 Nonalcoholic steatohepatitis (NASH); F43.10 Post-traumatic stress disorder, unspecified; D50.9 Iron deficiency anemia, unspecified; E53.8 Deficiency of other specified B group vitamins; N18.9 Chronic kidney disease, unspecified; E11.22 Type 2 diabetes mellitus with diabetic chronic kidney disease; K44.9 Diaphragmatic hernia without obstruction or gangrene; K29.70 Gastritis, unspecified, without bleeding; K64.8 Other hemorrhoids; Z90.49 Acquired absence of other specified parts of digestive tract; Z88.6 Allergy status to analgesic agent; Z87.81 Personal history of (healed) traumatic fracture; Z82.49 Family history of ischemic heart disease and other diseases of the circulatory system; Z68.21 Body mass index [BMI] 21.0-21.9, adult